=== PATIENT | male | born 1970 | race Caucasian/White ===

== ENCOUNTER 2020-02-11 10:25 | Outpatient (CLI) | payer OTHER, SELFPAY ==
--- NOTE | ~2020-02-11 | CT_ITS ---
EXAMINATION: CT chest wo con EXAM DATE: 02/11/2020 11:00 INDICATION: Broke left ribs in May, persistent pain. TECHNIQUE: Spiral CT of the chest without contrast. Axial, coronal and sagittal images were reviewe d. Coronal maximum intensity pixel images of chest reviewed. The dose-length product (DLP) for this examination was 502.65 mGy-cm. The exposure was tailored according to patient size (auto mA exposur e control), and iterative reconstruction (ASIR) was used as additional dose reduction technique. The re is no prior study for comparison. FINDINGS: There may be an externally placed marker lateral to the left 9th rib. The 9th rib is fract ured in 2 locations, the one closest to the BB has some solid bone bridging, appears chronic. 1 more posterior lateral has some buttressing of the unfused opposing ends, delayed union at risk for develo ping nonunion. Left 7th and 8th ribs are also fractured in the same line, are displaced and not fused with new bone formation at the opposing ends, nonunion. The left 5th and 6th ribs have fractures in same posterolateral line with buttressing, no solid bone bridging, delayed at risk for nonunion. Several nodules 4 mm her last, appearance consistent with noncalcified granulomas. There is mild emph ysema. There are no pleural or pericardial effusions. Tracheobronchial tree is patent. There is n o mediastinal, hilar or axillary lymphadenopathy. There is no pneumothorax. Heart normal in size. There is mild coronary arterial calcification, arterial sclerosis. Pancreatic uncinate calcificati ons. Small cholelithiasis. Probable left thyroid lobe 2 cm nodule. There is mild thoracic spondylos is without osteoblastic or osteolytic lesions identified. Mid thoracic compression fracture which has been treated with methylmethacrylate injection. IMPRESSION: 1. 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 2. Mild emphysema. 3. Postinfectious residua. 4. Probable left thyroid nodule. 5. Pancreatic uncinate calcifications, may indicate chronic pancreatitis. Reviewed, dictated and finalized at location A. IMPRESSION: 1. Left posterior lateral rib fractures, one of which has fused, 2 have nonuni on, 3 have delayed union. 2. Mild emphysema. 3. Postinfectious residua. 4. Probable left thyroid nodule. 5. Pancreatic uncinate calcifications, may indicate chronic pancreatitis.
== END 2020-02-11 10:26 | disposition home or self-care (01) ==
PROVIDERS: Visit Provider Family Medicine
DX: S22.32XA Fracture of one rib, left side, initial encounter for closed fracture (principal); X58.XXXA Exposure to other specified factors, initial encounter; J43.9 Emphysema, unspecified; R91.8 Other nonspecific abnormal finding of lung field
CPT/HCPCS: 71250

== ENCOUNTER 2020-07-18 13:46 | Outpatient (CLI) | payer OTHER, SELFPAY ==
--- NOTE | ~2020-07-18 | CT_ITS ---
EXAMINATION: 1. CT 3D reconstruction 2. CT chest wo con DATE: 07/18/2020 14:33 INDICATION: Left rib fractures with nonunion. Left chest pain. TECHNIQUE: Computed tomography (CT) of the chest was performed without intravenous contrast. Automate d exposure control and iterative reconstruction technique were employed. The dose-length product (DLP ) was 614.23 mGy-cm. 3-D volume rendered reconstructions were created by the technologist on a [employer] workstation under radiologist supervision. COMPARISON: Chest CT 02/11/2020, thyroid ultrasound 01/18/2019 FINDINGS: CHEST CT: There is mild emphysema. There is a 5 mm nodule in right upper lobe without change, likely benign. There is mild atelectasis bilaterally. No pleural effusion. Again seen is a nodule in left th yroid lobe with history of benign biopsy. The heart size is normal. There are coronary artery calcifi cations. No pericardial effusion. There are calcifications of the pancreas, consistent with chronic p ancreatitis. There is a gallstone in the gallbladder, which is normal in size. There is a chronic com pression fracture of T6 with changes of vertebroplasty. There is mild thoracic spondylosis. There are old fractures of left 5th-9th ribs with nonunion. There is a second old healed fracture in left 9th rib. 3D RECONSTRUCTIONS: There are old fractures of left fifth-ninth ribs with nonunion. IMPRESSION: 1. 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 2. Mild emphysema. Reviewed, dictated and finalized at location A. 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 2. Mild emphysema.
== END 2020-07-18 13:47 | disposition home or self-care (01) ==
DX: S22.42XK Multiple fractures of ribs, left side, subsequent encounter for fracture with nonunion (principal); J43.9 Emphysema, unspecified
CPT/HCPCS: 71250; 76376

== ENCOUNTER 2020-09-01 07:17 | Outpatient (CLI) | payer OTHER, SELFPAY ==
[2020-09-01 07:53] LABS: Basophils Absolute Auto 0.1 K/mm3 (0.0-0.1); Basophils Percent Auto 0.7 % (0.2-1.2); Eosinophils Absolute Auto 0.1 K/mm3 (0-0.3); Eosinophils Percent Auto 0.8 % (0-4.4); Hematocrit 34.9 % (42.0-52.0); Hemoglobin 11.2 g/dL (14.0-18.0); Immature Granulocyte Absolute 0.06 K/mm3 (0.00-0.031); Immature Granulocyte Percent A 0.6 % (0-0.5); Lymphocytes Absolute Auto 2.75 K/mm3 (0.9-3.2); Lymphocytes Percent Auto 28.9 % (18.3-44.2); Mean Corpuscular HGB Conc 32.1 g/dl (32-36); Mean Corpuscular Hemoglobin 31.2 pg (26-34); Mean Corpuscular Volume 97.2 fl (80-100); Mean Platelet Volume 8.8 fl (7.4-10.4); Monocytes Absolute Auto 0.7 K/mm3 (0.1-0.6); Monocytes Percent Auto 7.6 % (2.6-8.5); Neutrophils Absolute Auto 5.8 K/mm3 (1.3-6.7); Neutrophils Percent Auto 61.4 % (45.5-73.1); Platelet Count Result 485 k/mm3 (150-375); Red Blood Count 3.59 M/mm3 (4.6-6.20); Red Cell Distribution Width 16.9 % (11.5-14.5); White Blood Count 9.5 K/mm3 (4.5-10.0)
[2020-09-01 08:04] LABS: Potassium 3.5 mmol/L (3.4-5.0)
[2020-09-01 08:06] LABS: Hemoglobin A1C 5.1 % (<5.7)
[2020-09-01 08:11] LABS: Alanine Aminotransferase 19 U/L (4-50); Albumin Level 3.5 g/dL (3.5-5.1); Alkaline Phosphatase 47 U/L (38-126); Anion Gap 5 mmol/L (8-16); Aspartate Amino Transferase 28 U/L (17-59); Bilirubin,Total 0.2 mg/dL (0.2-1.3); Blood Urea Nitrogen 2 mg/dL (9-20); Calcium 9.2 mg/dL (8.4-10.2); Carbon Dioxide 37 mmol/L (22-30); Chloride 99 mmol/L (98-107); Estimated Glomerular Filt Rate > 60; Glucose 100 mg/dL (75-110); Sodium 141 mmol/L (137-145)
[2020-09-01 08:15] LABS: Parathyroid Intact 18.3 pg/mL (7.5-53.5)
[2020-09-01 08:46] LABS: Creatinine Urine 248.4 mg/dL
[2020-09-01 08:52] LABS: MALB Creatinine Ratio 4.8 mg/g (0-30); Microalbumin Urine Random 11.9 mg/L (0-16.7)
[2020-09-01 09:03] LABS: Vitamin D 25 Hydroxy 46.6 ng/mL
[2020-09-04 04:23] LABS: Sex Hormone Binding Globulin 82 nmol/L (10-50)
[2020-09-05 07:32] LABS: FSH 6.9 mIU/mL (1.6-8.0); LH 3.5 mIU/mL (1.5-9.3)
[2020-09-06 16:59] LABS: Testosterone Free 21.3 pg/mL (35.0-155.0); Testosterone Total 205 ng/dL (250-1100)
== END 2020-09-01 07:18 | disposition home or self-care (01) ==
LOC: ANHLAB 07:22
PROVIDERS: PCP Family Medicine
DX: M80.00XK Age-related osteoporosis with current pathological fracture, unspecified site, subsequent encounter for fracture with nonunion (principal)
CPT/HCPCS: 36415; 80053; 82043; 82306; 83001; 83002; 83036; 83970; 84270; 84402; 84403; 85025

== ENCOUNTER 2021-01-14 08:07 | Outpatient (CLI) | payer OTHER, SELFPAY ==
--- NOTE | ~2021-01-14 | US_ITS ---
EXAMINATION: US venous doppler [facility] DATE: 01/14/2021 08:47 INDICATION: Bilateral lower limb swelling TECHNIQUE: Grayscale ultrasound images without and with compression and Doppler ultrasound images of the bilateral lower extremity veins were obtained. COMPARISON: None. FINDINGS: The visualized portions of right common femoral vein, profunda (deep) femoral vein, femoral vein, pop liteal vein, posterior tibial veins, peroneal veins, gastrocnemius vein and greater saphenous vein ou tflow are patent. The visualized portions of left common femoral vein, profunda femoral vein, femoral vein, popliteal v ein, posterior tibial veins, peroneal veins, gastrocnemius vein and greater saphenous vein outflow ar e patent. IMPRESSION: 1. No deep venous thrombosis in either lower limb. Reviewed, dictated and finalized at location A.
--- NOTE | ~2021-01-14 | XR_ITS ---
XR chest 2V DATE: 01/14/2021 08:48 INDICATION: Recent fall. Left lower anterior rib pain. History of rib fractures. TECHNIQUE: PA and lateral views COMPARISON: 07/18/2020 CT chest FINDINGS: Normal heart size. No hilar or mediastinal enlargement. No pulmonary infiltrate or consolidation, pleural effusion or pulmonary vascular congestion or pneumo thorax. Plates and screws are noted along the posterolateral aspect of the left seventh through ninth ribs. Old posterolateral left fifth and sixth rib fractures are noted as well. Old right third and fourth h ealed rib fractures. Moderate T6 compression fracture deformity with vertebroplasty is again noted. IMPRESSION: No active cardiopulmonary disease Reviewed, dictated and finalized at location B.
== END 2021-01-14 08:08 | disposition home or self-care (01) ==
PROVIDERS: PCP Family Medicine
DX: R60.0 Localized edema (principal)
CPT/HCPCS: 71046; 93970

== ENCOUNTER 2021-01-15 08:38 | Outpatient (CLI) | payer OTHER, SELFPAY ==
--- NOTE | 2021-01-15 | ECHO_ITS ---
Patient Info Name: Thaddeus Carrasco Age: 50 years : 1970 Gender: Male Ht: 68 in Wt: 210 lbs BSA: 2.17 m2 HR: 96 bpm BP: 119 / 74 mmHg Heart Rhythm: Sinus Rhythm Exam Date: 01/15/2021 9:07 AM Exam Location: [facility] Patient Status: Outpatient Admit Date: 01/15/2021 Staff Ordering Physician: YAZAN SERRANO MD [employer] Department Manager: Celestina Zavala RDCS Attending Provider: YAZAN SERRANO MD Referring Physician: ZACH DIAZ; Exam Type: CA echo doppler color flow Study Info Indications - EDEMA LOWER EXTREMETIES Complete two-dimensional, color flow and Doppler transthoracic echocardiogram is performed. Summary 1. Complete two-dimensional, color flow and Doppler transthoracic echocardiogram is performed. 2. Left ventricular chamber dimension is normal. 3. Left ventricular systolic function is normal, estimated at 60-65%. 4. The left ventricular diastolic function is grade I diastolic dysfunction. 5. E/e' 10 is mildly elevated. 6. There is mild aortic valve sclerosis. 7. There is trace aortic valve regurgitation. 8. There is trace tricuspid valve regurgitation. 9. There is trivial pericardial effusion. Left Ventricle E/e' 10 is mildly elevated. Left ventricular chamber dimension is normal. Left ventricular systolic function is normal, estimated at 60-65%. The left ventricular diastolic function is grade I diastolic dysfunction. Right Ventricle Right ventricular chamber dimension is normal. Right ventricular systolic function is normal. Left Atria Left atrial chamber dimension is normal. Right Atria Right atrial chamber dimension is normal. Aortic Valve The aortic valve is trileaflet. There is mild aortic valve sclerosis. There is no aortic valve stenosis. There is trace aortic valve regurgitation. Pulmonic Valve There is no pulmonic regurgitation. Mitral Valve There is no mitral valve stenosis. There is no mitral valve regurgitation. Tricuspid Valve There is trace tricuspid valve regurgitation. RVSP is not calculated due to an inadequate TR jet. Pericardium/Pleural There is trivial pericardial effusion. Inferior Vena Cava Normal inferior vena cava with >50% collapse upon inspiration consistent with normal right atrial pressure, 5 mmHg. Aorta The aortic root size at the sinus of Valsalva is normal. Left Ventricular Outflow Tract Name Value Normal LVOT 2D LVOT Diameter 2.0 cm LVOT Doppler LVOT Peak Gradient 4 mmHg LVOT Mean Gradient 2 mmHg LVOT VTI 21 cm LVOT VTI/AV VTI Ratio 0.6 LVOT Stroke Volume 67 ml LVOT CO 5.5 l/min LVOT CI 2.5 l/min/m2 Pulmonic Valve Name Value Normal RVOT Doppler
== END 2021-01-15 08:39 | disposition home or self-care (01) ==
LOC: ANHCARD 08:43
PROVIDERS: PCP Family Medicine
DX: R60.0 Localized edema (principal)
CPT/HCPCS: 93306

== ENCOUNTER 2021-06-08 14:01 | Outpatient (CLI) | payer OTHER, SELFPAY ==
--- NOTE | ~2021-06-08 | XR_ITS ---
EXAMINATION: XR chest 2V DATE: 06/08/2021 14:24 INDICATION: Left chest pain. TECHNIQUE: Frontal and lateral views of the chest were obtained. COMPARISON: Chest 2 views 01/14/2021, chest CT 07/18/20 FINDINGS: The chest demonstrates clear lungs without pneumonia, pleural effusion, or pneumothorax. Th e heart size is normal. There are old fractures of left fifth through ninth ribs. There is plate and screw fixation of 3 of the ribs. There is chronic fracture of the reconstruction plate of the seventh rib. There is a compression fracture of T6 with changes of vertebroplasty. IMPRESSION: 1. Old left-sided rib fractures with chronic fracture of the reconstruction plate of the left seventh rib. Reviewed, dictated and finalized at location A. 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 Old left-sided rib fractures with chronic fracture of the reconstruction moncia te of the left seventh rib.
== END 2021-06-08 14:02 | disposition home or self-care (01) ==
LOC: ANHIMG 14:09
PROVIDERS: PCP Family Medicine
DX: R07.89 Other chest pain (principal)
CPT/HCPCS: 71046